=== PATIENT | male | born 1975 | race Caucasian/White ===

== ENCOUNTER → 2021-01-06 | Day surgery (SDC) | payer BC ==
[2021-01-05 09:15] VITALS: BMI 27.7
[~2021-01-06] MED LIST: PROPOFOL 10 MG/ML 20 ML VIAL IV ONE; SODIUM CHLORIDE 0.9% 1,000 ML IV SCH
[2021-01-06 12:05] LABS: African American GFR (CKD) >90 (>60 ml/min/1.73 sqM); Anion Gap 7 mmol/L; Blood Urea Nitrogen 19 mg/dL (9-20); Calcium 9.2 mg/dL (8.4-10.2); Carbon Dioxide 26 mmol/L (22-30); Chloride 105 mmol/L (98-107); Glucose 98 mg/dL (74-99); Non-African American GFR(CKD) >90 (>60 ml/min/1.73 sqM); Potassium 4.4 mmol/L (3.5-5.1); Sodium 138 mmol/L (137-145)
[2021-01-06 12:29] VITALS: RESP 16; TEMP 98
--- NOTE | 2021-01-06 12:51 | CE ---
CARDIAC ELECTROPHYSIOLOGY REPORT DATE OF SERVICE: January 06, 2021. PERFORMING PHYSICIAN: Bautista Kothari MD. PROCEDURE PERFORMED: Cardioversion of atrial fibrillation to normal sinus mechanism. COMPLICATION: None. LEVEL OF SEDATION: The patient procedure was performed using propofol with CLINICAL RESEARCH ADMINISTRATOR in the room. PROCEDURE DESCRIPTION: After transesophageal echocardiogram was performed and left atrial appendage thrombus was ruled out, we did successful cardioversion of atrial fibrillation to normal sinus mechanism using 200 joules on first attempt. CONCLUSION: Successful cardioversion of atrial fibrillation to normal sinus mechanism using 200 joules on first attempt. MMODL / IJN: [id number] /
--- NOTE | 2021-01-06 16:21 | ECHOT ---
TRANSESOPHAGEAL ECHOCARDIOGRAM DATE OF SERVICE: January 06, 2021 PERFORMING PHYSICIAN: Bautista Kothari MD. PROCEDURE PERFORMED: Transesophageal echocardiogram. INDICATION: Atrial fibrillation and rule out intracardiac thrombus. COMPLICATION: None. LEVEL OF SEDATION: The procedure was performed using propofol with BUSINESS CASE ANALYST in the room. PROCEDURE DESCRIPTION: After obtaining an informed consent, the patient was brought to the recovery room. A pulse oximetry and heart rate monitors were attached the patient. Subsequently, the patient was turned into left lateral position. Subsequently, the patient was sedated using propofol with BUSINESS CASE ANALYST in the room. After that, the transesophageal echocardiogram probe was advanced to the mid esophageal where 2D echocardiogram images as well as color Doppler images of various cardiac structures were obtained. Please note that the procedure was performed using 2D echocardiogram as well as color Doppler, pulse Doppler, and continuous-wave Doppler. After that, the procedure was completed without any complication. FINDINGS: The left ventricular dimension and systolic function appeared to be within normal limits. The ejection fraction appeared to be in the range of 50% to 55%. The right ventricle appeared to be of normal size and function. The left atrium appeared to be dilated as well as the right atrium. The left atrial appendage appeared to be intact. The interatrial septum appeared to be intact. The aortic valve appeared to be trileaflet valve without stenosis or regurgitation. The mitral valve seems to be normal with mild to moderate MR. Normal tricuspid regurgitation was seen. There is no evidence of pericardial effusion identified as well. CONCLUSION: 1. Intact left atrial appendage without any evidence of thrombus. 2. Normal interatrial septum without any evidence of shunt. 3. Normal left ventricular dimension and systolic function. 4. Normal right ventricular dimension and systolic function. 5. Mild to moderate mitral regurgitation. 6. Normal aortic valve without stenosis or regurgitation. 7. No evidence of pericardial effusion. POSTPROCEDURE MANAGEMENT: Proceed with cardioversion. MMODL / IJN: [id number] /
[2021-01-06 17:26] VITALS: BP 113/72; PULSE 66
== END ==
LOC: CATHCVL 10:42
PROVIDERS: ATTEND Internal Medicine Interventional Cardiology
DX: I48.0 Paroxysmal atrial fibrillation (principal); I34.0 Nonrheumatic mitral (valve) insufficiency; Z82.49 Family history of ischemic heart disease and other diseases of the circulatory system; Z79.82 Long term (current) use of aspirin; Z79.899 Other long term (current) drug therapy
CPT/HCPCS: 93312; 93320; 93325; 92960; 80048; J2704